=== PATIENT | male | born 1950 | race Caucasian/White ===

== ENCOUNTER 2016-11-27 10:30 | Emergency (ER) | payer OTHER ==
[~2016-11-27] VITALS: Ht 175.3 cm; Wt 81.6 kg
--- NOTE | 2016-11-27 11:13 | ED GENERAL ADULT ---
History of Present Illness General Chief Complaint: General Adult Stated Complaint: HIGH BP,MACK Source: patient Exam Limitations: no limitations Vital Signs & Intake/Output Vital Signs & Intake/Output Vital Signs Date Time Temp Pulse Resp B/P Pulse O2 O2 Flow FiO2 Ox Delivery Rate 11/27 1219 77 16 154/90 97 Room Air 11/27 1110 160/94 11/27 1105 Room Air 11/27 1037 98.1 80 20 171/89 97 Room Air Allergies Coded Allergies: lisinopril (LIPS SWELLING 11/27/16) Reconcile Medications Aspirin (Aspirin*) 81 MG TAB.CHEW 1 TAB PO DAILY HEART HEALTH (Reported) Atorvastatin Calcium 40 MG TABLET 1 TAB PO DAILY CHOLESTEROL (Reported) Cholecalciferol (Vitamin D3) 1,000 UNIT TABLET 1 TAB PO DAILY SUPPLEMENT ( Reported) Diltiazem HCl (Diltiazem 24HR ER) 120 MG CAP.ER.24H 1 CAP PO DAILY HEART ( Reported) Metoprolol Tartrate 50 MG TABLET 1 TAB PO DAILY HEART (Reported) Metoprolol Tartrate 25 MG TABLET 1 TAB PO QPM HEART (Reported) Multivitamin (Multi-Day Vitamins) 1 EACH TABLET 1 TAB PO DAILY SUPPLEMENT ( Reported) Pantoprazole Sodium 20 MG TABLET.DR 1 TAB PO DAILY GI (Reported) Silodosin (Rapaflo) 8 MG CAPSULE 1 CAP PO DAILY BLADDER (Reported) Triage Note: PT C/O ELEVATED BP AND H/A SINCE MONDAY. STATES HE HAS BEEN TAKING HIS BP MEDS USUAL. STATES HE ACCIDENTLY MISSED HIS MEDS ON MONDAY BUT HAS TAKEN THEM SCHEDULED SINCE Triage Nurses Notes Reviewed? yes Onset: Gradual Duration: day(s): (3) Timing: recent history Injury Environment: home Severity: moderate HPI: Patient is a 66-year-old male with history of hypertension, on daily medications presenting to the emergency department with chief complaint of frontal throbbing headaches that are mild to moderate over the past 2-3 days. Denies any change in her antihypertensive medications. Has been taking them daily. Denies any visual changes chest pain or palpitations. No shortness of breath. He does report mild upper respiratory congestion and has been taking [id number] cough medication. He tried taking Tylenol yesterday for the headaches without relief. He then took Aleve overnight which seemed to help. Denies any neck pain or back pain. No body aches. (NANI DILLON) Past History Travel History Traveled to [place] past 21 day No Medical History Any Pertinent Medical History? see below for history Cardiovascular: hypertension Surgical History Surgical History: non-contributory Psychosocial History What is your primary language Colombian Tobacco Use: Never used ETOH Use: occasional use Illicit Drug Use: denies illicit drug use Family History Hx Contributory? No (NANI DILLON) Review of Systems Review of Systems Constitutional: Reports: no symptoms. Comments Review of systems: See HPI, All other systems negative. Constitutional, no chills fever or weight loss HEENT: No visual changes no sore throat Cardiovascular: No chest pain ,palpitation , orthopnea or ankle swelling Skin, no jaundice no rashes Respiratory: No dyspnea cough sputum or hemoptysis GI: No nausea no vomiting : No dysuria No hematuria Muscle skeletal: no back pain, no neck pain, Neurologic: No numbness no confusion Psych: No stress anxiety or depression,. Heme/endocrine: No bruising no bleeding no polyuria or polydipsia Immunology: No splenectomy or history of AIDS (NANI DILLON) Physical Exam Physical Exam General Appearance: well developed/nourished, no apparent distress, alert, awake , comfortable Comments: Well-developed well-nourished person in no acute distress HEENT: Normal EENT exam, extraocular motion intact, no nystagmus. Pupils equally round and reactive to light and accommodation. Nose is atraumatic. External auditory canal and Tympanic membranes clear. Pharynx normal. No swelling or edema. Funduscopic exam: Limited secondary to no dilation prior to exam, no obvious retinal detachment, no venous nicking or hemorrhage. Neck: Supple, no lymphadenopathy, normal range of motion without pain or tenderness Back: Nontender, no CVA tenderness. Full range of motion Cardiovascular: Regular rate and rhythms no murmurs rubs or gallops, normal JVP Respiratory: Chest nontender. No respiratory distress.breath sounds clear to auscultation bilaterally Abdomen: Soft nontender nondistended, bowel sounds throughout. No rebound or guarding. Extremity: No edema, no calf tenderness to palpation, normal and equal pulses. Neuro: Alert oriented x3, motor sensory normal, cranial nerves II through XII grossly intact. Cerebellar testing is unremarkable. Skin: No appreciable rash on exposed skin, skin is warm and dry. Psych: Mood and affect is normal, memory and judgment is normal. Core Measures ACS in differential dx? Yes CVA/TIA Diagnosis: No Severe Sepsis Present: No Septic Shock Present: No (KAILA ADAMS,NANI) Progress Differential Diagnoses I considered the following diagnoses in my evaluation of the patient: Hypertensive emergency, hypertensive emergency, uncontrolled hypertension, side effect of [id number] cough medication, upper respiratory infection, sinusitis Plan of Care: Orders Procedure Date/time Status TROPONIN LEVEL 11/27 1111 Complete COMPREHENSIVE METABOLIC PANEL 11/27 1111 Complete CBC WITHOUT DIFFERENTIAL 11/27 1111 Complete EKG 11/27 111 Active Laboratory Tests 11/27/16 1119: Anion Gap 9, Estimated GFR > 60, BUN/Creatinine Ratio 17.5, Glucose 143 H, Calcium 9.6, Total Bilirubin 0.8, AST 20, ALT 34, Alkaline Phosphatase 117, Troponin I < 0.01, Total Protein 7.0, Albumin 3.9, Globulin 3.1, Albumin/ Globulin Ratio 1.3, CBC w Diff MAN DIFF ORDERED, RBC 4.21 L, MCV 89.0, MCH 29.2 , RDW 14.8 H, MPV 8.3, Gran % 84.5 H, Lymphocytes % 10.4 L, Monocytes % 4.6, Eosinophils % 0.3, Basophils % 0.2, Absolute Granulocytes 8.1 H, Absolute Lymphocytes 1.0 L, Absolute Monocytes 0.4, Absolute Eosinophils 0, Absolute Basophils 0, Platelet Estimate VERIFIED BY SMEAR, Poikilocytosis 1+, Anisocytosis 1+, Ovalocytes 1+, PUBS MCHC 32.8 L Diagnostic Imaging: Viewed by Me: Radiology Read, CT Scan. Discussed w/RAD: Radiology Read, CT Scan. Radiology Impression: PATIENT: CYNTHIA MATHEW PRESENT AGE: 66 PATIENT ACCOUNT NO: [id number] : 51 LOCATION: [facility] ORDERING PHYSICIAN: NANI ADAMS SERVICE DATE: 11/27/16 EXAM TYPE: RAD - XRY-CHEST XRAY, PA AND LATERAL EXAMINATION: XR CHEST CLINICAL INFORMATION: Hypertension. COMPARISON: 07/12/09. TECHNIQUE: 2 views of the chest were obtained. FINDINGS: No significant abnormality is noted involving the heart, lungs, mediastinum, bony thorax or soft tissues. Heart size and configuration are normal. IMPRESSION: Unremarkable examination. DICTATED BY: LISA FERREIRA MD DATE/TIME DICTATED:11/27/161135 [employer]STRUMENT REPA[employer]:TYLER DATE/ TIME TRANSCRIBED:11/27/161135 CONFIDENTIAL, DO NOT COPY WITHOUT APPROPRIATE AUTHORIZATION. <Electronically signed in Other Vendor System> SIGNED BY: LISA FERREIRA MD 11/27/16 1141, PATIENT: CYNTHIA MATHEW PRESENT AGE: 66 PATIENT ACCOUNT NO: [id number] : 51 LOCATION: [facility] ORDERING PHYSICIAN: NANI ADAMS SERVICE DATE: 11/27/16 EXAM TYPE: CAT - CT HEAD WO IV CONTRAST EXAMINATION: CT HEAD WITHOUT CONTRAST CLINICAL INFORMATION: 66-year-old man with headaches. COMPARISON: None TECHNIQUE : Contiguous axial imaging was performed from the skull base to vertex without intravenous administration of contrast. DLP: 529 mGy-cm FINDINGS: There is no evidence of acute intracranial hemorrhage or territorial infarction. No abnormal mass effect or midline shift is seen. Dean to white matter differentiation is well preserved. No extra-axial fluid collections are identified. The ventricles are normal in size. There is no abnormal attenuation within the brain parenchyma. The osseous structures and soft tissues are normal. There is complete opacification of the right sphenoid sinus with extension into the nasal cavity, potentially reflecting a mucocele. There is mucosal thickening in the left sphenoid sinus as well. IMPRESSION: No acute intracranial pathology. Initial ED EKG: NSR (64 bpm) Comments: Repeat manual blood pressure on arrival is 160/90. Patient does not need IV intervention for hypertension at this time. Patient is neurologically intact but reports headaches with documented blood pressures at home of 170/120. Patient resting comfortably. He was informed of all lab imaging. EKG is unremarkable. Patient nontoxic. He will follow-up with his PCP tomorrow. Educated on picking up a blood pressure cuff at the store. He will continue daily medications. Discussed with Dr. torres and she agrees with plan. (KAILA ADAMS,NANI) Departure Departure Time of Disposition: 1214 Disposition: HOME OR SELF CARE Condition: Stable Clinical Impression Primary Impression: Hypertension Qualifiers: Hypertension type: essential hypertension Qualified Code: I10 - Essential (primary) hypertension Referrals: DORI MARTÍNEZTIAGO (PCP/Family) Additional Instructions: follow up with pcp call to make appt. continue daily meds. stop over the coutner cough meds. try using flonase to help with congestion. Departure Forms: Customer Survey General Discharge Information (NANI DILLON) PA/GAS PLUMBER Co-Sign Statement Statement: ED Attending supervision documentation- [X] I saw and evaluated the patient. I have also reviewed all the pertinent lab results and diagnostic results. I agree with the findings and the plan of care as documented in the PA's/GAS PLUMBER's documentation. [X] I have reviewed the ED Record and agree with the PA's/GAS PLUMBER's documentation. [] Additions or exceptions (if any) to the PAs/GAS PLUMBER's note and plan are summarized below: [] (CAMILLA MARTÍNEZ,BRADEN) Critical Care Note Critical Care Note Critical Care Time: non-applicable (NANI DILLON)
[2016-11-27 11:35] LABS: ABSOLUTE BASOPHIL COUNT 0 /CUMM (0.0-0.2); ABSOLUTE EOSINOPHIL COUNT 0 /CUMM (0.0-0.7); ABSOLUTE GRANULOCYTE CT 8.1 /CUMM (1.4-6.5); ABSOLUTE MONOCYTE COUNT 0.4 /CUMM (0.10-0.60); BASOPHIL % 0.2 % (0.0-2.0); EOSINOPHIL % 0.3 % (0-5); GRANULOCYTE % 84.5 % (42.2-75.2); HEMATOCRIT 37.4 % (42-52); MEAN CORPUSCULAR HGB 29.2 PG (27.0-31.0); MEAN CORPUSCULAR HGB CONC 32.8 G/DL (33.0-37.0); MEAN PLATELET VOLUME 8.3 FL (7.4-10.4); PLATELET COUNT 240 /CUMM (130-400); RBC DISTRIBUTION WIDTH 14.8 % (11.5-14.5); RED BLOOD CELL CT 4.21 /CUMM (4.70-6.10); WHITE BLOOD CELL COUNT 9.6 /CUMM (4.8-10.8)
[2016-11-27] MEDS ORDERED: METOPROLOL TART50 M1 PO (11:35)
[2016-11-27] MEDS ORDERED: PANTOPRAZOLE SO20 M1 PO (11:35)
[2016-11-27] MEDS ORDERED: METOPROLOL TART25 M1 PO (11:35)
[2016-11-27] MEDS ORDERED: DILTIAZEM 24HR120 MG PO (11:35)
[2016-11-27] MEDS ORDERED: ATORVASTATIN CA40 M1 PO (11:36)
[2016-11-27] MEDS ORDERED: ASPIRIN81 M4 PO (11:36)
[2016-11-27] MEDS ORDERED: RAPAFLO8 M1 PO (11:36)
[2016-11-27] MEDS ORDERED: MULTI-DAY VITA1 EACH PO (11:37)
[2016-11-27] MEDS ORDERED: VITAMIN D31000 UNI2 PO (11:37)
--- NOTE | 2016-11-27 11:41 | RADIOLOGY REPORT ---
EXAMINATION: XR CHEST CLINICAL INFORMATION: Hypertension. COMPARISON: 07/12/09. TECHNIQUE: 2 views of the chest were obtained. FINDINGS: No significant abnormality is noted involving the heart, lungs, mediastinum, bony thorax or soft tissues. Heart size and configuration are normal. IMPRESSION: Unremarkable examination.
--- NOTE | 2016-11-27 12:07 | CT SCAN REPORT ---
EXAMINATION: CT HEAD WITHOUT CONTRAST CLINICAL INFORMATION: 66-year-old man with headaches. COMPARISON: None TECHNIQUE: Contiguous axial imaging was performed from the skull base to vertex without intravenous administration of contrast. DLP: 529 mGy-cm FINDINGS: There is no evidence of acute intracranial hemorrhage or territorial infarction. No abnormal mass effect or midline shift is seen. Dean to white matter differentiation is well preserved. No extra-axial fluid collections are identified. The ventricles are normal in size. There is no abnormal attenuation within the brain parenchyma. The osseous structures and soft tissues are normal. There is complete opacification of the right sphenoid sinus with extension into the nasal cavity, potentially reflecting a mucocele. There is mucosal thickening in the left sphenoid sinus as well. IMPRESSION: No acute intracranial pathology.
[2016-11-27 12:19] VITALS: BP 154/90
== END 2016-11-27 12:21 ==
LOC: ERH 10:30
PROVIDERS: Physician Assistant
DX: I10 Essential (primary) hypertension (principal)
CPT/HCPCS: 93005; 93010